=== PATIENT | female | born 1950 | race Caucasian/White ===

== ENCOUNTER 2016-11-22 08:12 | Emergency (ER) | payer OTHER ==
[2016-11-22 09:03] LABS: HEMOGLOBIN 12.7 gm/dl (12.3-15.3); RED BLOOD COUNT 4.43 M/UL (4.00-5.10); WHITE BLOOD COUNT 9.9 K/UL (4.5-11.0)
[2016-11-22 09:20] LABS: BUN/CREATININE RATIO 20 (0-10)
== END 2016-11-22 12:25 | disposition home or self-care (01) ==
LOC: ER1 08:12
PROVIDERS: Emergency Medicine
DX: N20.1 Calculus of ureter (principal); N28.1 Cyst of kidney, acquired; I70.90 Unspecified atherosclerosis; Z90.12 Acquired absence of left breast and nipple; Z85.3 Personal history of malignant neoplasm of breast; Z88.1 Allergy status to other antibiotic agents; Z88.8 Allergy status to other drugs, medicaments and biological substances; Z79.899 Other long term (current) drug therapy
CPT/HCPCS: 36415; 80053; 81001; 83690; 85025; 96374; 96375; 96376; 99283; J1885; J2270; J2405

== ENCOUNTER 2017-03-14 10:42 | Emergency (ER) | payer MEDICARE, OTHER ==
[2017-03-14 12:28] LABS: HEMOGLOBIN 13.1 gm/dl (12.3-15.3); RED BLOOD COUNT 4.67 M/UL (4.00-5.10); WHITE BLOOD COUNT 5.7 K/UL (4.5-11.0)
[2017-03-14 12:53] LABS: BUN/CREATININE RATIO 15 (0-10)
== END 2017-03-14 14:43 | disposition home or self-care (01) ==
LOC: ER1 10:42
PROVIDERS: Physician Assistant
DX: R07.9 Chest pain, unspecified (principal); R11.2 Nausea with vomiting, unspecified; I49.3 Ventricular premature depolarization; Z87.891 Personal history of nicotine dependence; Z85.3 Personal history of malignant neoplasm of breast; Z79.899 Other long term (current) drug therapy
CPT/HCPCS: 36415; 71010; 80053; 81001; 82150; 82550; 82553; 83690; 83874; 84484; 85025; 93005; 99285

== ENCOUNTER → 2022-02-14 | Outpatient (CLI) | payer MEDICARE, OTHER | LOC: KOH-I 09:31 | DX: R10.11 Right upper quadrant pain (principal); K82.8 Other specified diseases of gallbladder; N28.1 Cyst of kidney, acquired | CPT/HCPCS: 76705 ==